=== PATIENT | female | born 1935 | race Caucasian/White ===

== ENCOUNTER 2016-12-23 17:50 | Inpatient (IN) | payer MEDICARE, OTHER ==
--- NOTE | ~2016-12-23 | CO ---
Unit #: [id number] #: [id number] Patient: FEDE MURGUIA [id number] [address] [place], [place] [address] [id number] I MR#: [id number] NAME: FEDE MURGUIA ROOM: 71187 Age: 81 Sex: F Admission Date: 12/23/2016 : 1935 Attending Physician: Dima August M.D. Primary Care Physician: No Primary Care Physician Consultation Date: 12/24/2016 CONSULTATION REPORT HISTORY OF PRESENT ILLNESS Ms. Murguia is an 81-year-old female who lives in an assisted living facility presents to the ER with a two to three day history of abdominal pain, associated nausea, vomiting and obstipation. In the ER, a CT was obtained. It was consistent with small bowel obstruction. On physical examination, she has an incarcerated right femoral hernia. She denied fever, chills, hematemesis, hematochezia, melena. PAST MEDICAL HISTORY Right total hip replacement, diabetes mellitus, hypercholesterolemia, cholecystectomy. SOCIAL HISTORY Assisted living facility. No family available at this time. The patient denies the use of tobacco or alcohol. FAMILY HISTORY She is unaware of any chronic or inheritable diseases. ALLERGIES No allergies to medication. MEDICATIONS 1. Lipitor. 2. Glucotrol. REVIEW OF SYSTEMS No hematemesis, hematochezia, melena, fever, chills, night sweats. PHYSICAL EXAMINATION GENERAL APPEARANCE: She is awake, alert and oriented. VITAL SIGNS: Temperature 98.3. Pulse 60. Respirations 14. Blood pressure 150/68. HEENT: Unremarkable. CARDIAC: Regular rhythm. LUNGS: Clear. ABDOMEN: Nondistended. There is no rebound tenderness or involuntary guarding. She does have an incarcerated right femoral hernia. EXTREMIIES: No clubbing, cyanosis or edema. NEUROLOGIC: Grossly intact. DIAGNOSTIC STUDIES LABORATORY: Hemoglobin 13.3, white count 12,400, platelets 511,000. Urinalysis shows 5 to 10 white cells. Chemistry is unremarkable except Unit #: [id number] #: [id number] Patient: FEDE MURGUIA for a potassium of 2.7. IMAGING: Chest x-ray: No acute disease. CT scan: Small bowel obstruction with transition point in the right lower quadrant and there is a right femoral hernia. There is an indeterminate left adrenal nodule, a 1.2 cm splenic artery aneurysm and bilateral sacral fractures and a nondisplaced fracture of the right L5 transverse process. ASSESSMENT AND PLAN 1. Small bowel obstruction secondary to incarcerated right femoral hernia. I discussed with the patient that she will need to be decompressed with an NG tube and then undergo urgent surgery to repair the hernia and evaluate her small bowel. She understands that if there is any injury to the small bowel, she may need to have an exploratory laparotomy and small bowel resection. 2. She does complain of back pain and has some changes of probably fractures from osteoporosis. 3. A 1.2 cm splenic artery aneurysm. 4. Indeterminate left adrenal nodule. Dictated by... Naomi Valdivia/silvia TD: 12/24/2016 06:37 JOB #: [id number] CONSULTATION REPORT Page 1 of 1 X Dima August MD X CONSULTATION REPORT
--- NOTE | ~2016-12-23 | CO ---
Unit #: [id number] #: [id number] Patient: FEDE ENGEL [id number] [address] [address] [id number] I MR#: [id number] NAME: FEDE ENGEL ROOM: 466 Age: 81 Sex: F Admission Date: 12/23/2016 : 1935 Attending Physician: Dima August M.D. Primary Care Physician: No Primary Care Physician Consultation Date: 12/30/2016 CONSULTATION REPORT Patient is admitted to Dr. Dima August. REASON FOR CONSULTATION Positive Clostridium difficile colitis. HISTORY OF PRESENT ILLNESS This is an 81-year-old female who lives in an assisted living facility who came to the emergency room with a few day history of abdominal pain, nausea, vomiting. Patient reports she did not have any fever when she came to the hospital and she does not recall any recent antibiotic use. Patient's CT scan was consistent with small bowel obstruction and hernia that was an incarcerated right femoral hernia. Patient was admitted to the hospital. She is status post surgery. She at some point also developed diarrhea and stool was tested and she was positive for C. diff colitis. The patient was started on Flagyl. Per this stay, surgery has also started a Prevpac for positive H. pylori. ID was asked to evaluate for further management with C. diff colitis. PAST MEDICAL HISTORY Includes total hip replacement, diabetes, hypercholesterolemia, and cholecystectomy. ALLERGIES No known allergies. MEDICATIONS Patient is currently on Flagyl and is to be initiated on a Prevpac. Further medications please refer to patient's MAR. SOCIAL HISTORY The patient denies any alcohol or tobacco abuse. REVIEW OF SYSTEMS Patient denies any fevers, chills, nausea, vomiting or diarrhea. She reports increasing appetite since being in the hospital. She reports no significant diarrhea at this time. Her abdominal pain has improved with pain pills. She denies any chest pain, shortness of breath, wheezes, UTI signs or symptoms or any nonhealing wounds. PHYSICAL EXAMINATION VITAL SIGNS: Temperature 98.3, pulse 72, blood pressure is 160/82, respiratory 18. GENERAL: This is a no apparent distress female who is sitting up in the bed, comfortably eating an omelet. Unit #: [id number] #: [id number] Patient: FEDE ENGEL: Her pupils are equal. Her neck is supple. CARDIOVASCULAR: S1 and S2 regular rate and rhythm. PULMONARY: Clear to auscultation bilaterally with no wheezes or rhonchi noted. ABDOMEN: Positive bowel sounds, soft, nontender. There is a right lower quadrant groin incision that is clean, dry, and intact with no Evidence of erythema, cellulitis or drainage. EXTREMITIES: No clubbing, cyanosis or edema. DIAGNOSTIC STUDIES LABS: BUN 8, creatinine 0.5, sodium 132, potassium 4.1, chloride 107, CO2 21, BUN 0.4, AST 52, ALT 34. WBC is 9.4, hemoglobin 12.2, hematocrit 38.0, platelets 424. H. Pylori is positive on 12/26/2016. Urinary analysis shows 25-50 WBCs, negative nitrates, stool study is positive for C. diff on 12/27/2016. 12/23/2016 urine culture shows 60,000 colonies of contamination. IMAGING STUDIES: Patient had a CT scan of the abdomen and pelvis - please see full report for complete details. Thus she had a small bowel obstruction right femoral hernia. IMPRESSION This is an 81-year-old female admitted to the hospital with nausea, vomiting, and diarrhea, not feeling well for several days and found to have an incarcerated right femoral hernia and small bowel obstruction. Patient is status post OR and has since developed episodes of diarrhea. Stool for C. diff toxin was positive and she has been initiated on Flagyl. Patient's H. Pylori was also positive and she has been started on a Prevpac. At this time, if the patient does not have any significant diarrhea or abdominal cramping, will recommend to treat as patient has first episode of C. diff. colitis with Flagyl. As patient is going to be on antibiotic therapy for 10-14 days, for her H. Pylori, will recommend that she continues Flagyl for the same duration. The patient does not have any fever or sighs or symptoms of other infection at this time. She is eating and appears nontoxic. Thank you for allowing us to participate in the care of this patient. Further recommendations will be followed pending patient's clinical course. Dictated by... Tobin Rios.PAmiraRAmiraN. for Naomi Nieves/kyrie TD: 12/30/2016 09:59 JOB #: [id number] Unit #: [id number] #: [id number] Patient: FEDE ENGEL CONSULTATION REPORT Page 1 of 1 X X CONSULTATION REPORT
--- NOTE | ~2016-12-23 | EKG ---
PATIENT: FEDE ENGEL UNIT #: [id number] Ventricular Rate: 62 BPM Atrial Rate: 62 BPM P-R Interval: 176 ms QRS Duration: 78 ms Q-T Interval: 412 ms QTC Calculation(Bezet): 418 ms P [place]: 46 degrees Calculated R [place]: 14 degrees Calculated T [place]: 37 degrees Diagnosis Line: Normal sinus rhythm Diagnosis Line: Low voltage QRS Diagnosis Line: Borderline ECG Diagnosis Line: No previous ECGs available Diagnosis Line: Confirmed by ALBERT WINTERS MD ([id number]) on 12/24/2016 Diagnosis Line: 11:31:46 PM INTERPRETING MD: SINGH HERZOG
--- NOTE | ~2016-12-23 | CR63 ---
[facility] A Service of [facility] & [facility] RADIOLOGY TEXT RESULTS PATIENT: FEDE ENGEL LOCATION: [facility] [address]326-22 : [birth year] UNIT #: [id number] AGE: [address]: Dima August MD SEX: F ORDER DR: [id number] [facility] [address] [place], [place] [address] [id number] MR#: [id number] Acc #: [id number] NAME: FEDE ENGEL : 1935 SEX: F STUDY DATE/TIME: 12/23/2016 16:56 UNIT: [facility] ROOM: STUDY DESCRIPTION: CR Chest 2 View Attending Physician: Moi Jeffrey Aprn Ordering Physician: Ed Doctor [id number] [facility] Primary Care Physician: Primary Care Physician No MEDICAL IMAGING REPORT This report is preliminary unless electronic signature is present EXAM Two-view chest INDICATIONS Chest pain, cough and abdominal pain. Weakness. FINDINGS PA and lateral views of the chest without comparison. Heart and mediastinal contours normal. Lungs are clear. No pleural effusion. Lungs are hyperinflated suggesting a component of obstructive lung disease. IMPRESSION No acute cardiopulmonary findings. Dictated by... Jeff Whitley M.D. THIS IS AN ELECTRONICALLY VERIFIED REPORT Jeff Whitley M.D. at 12/23/2016 10:06 PM ERIS/doreen TD: 12/23/2016 21:02 JOB #: [id number] MEDICAL IMAGING REPORT Page 1 of 1 COPY
--- NOTE | ~2016-12-23 | OR ---
Unit #: [id number] #: [id number] Patient: FEDE ENGEL [id number] [address] [place], [place] [address] [id number] I MR#: [id number] NAME: FEDE ENGEL ROOM: [facility] Date of Procedure: 12/24/2016 Admission Date: 12/23/2016 Surgeon: Dima August M.D. : 1935 Attending Physician: Dima August M.D. OPERATIVE REPORT PREOPERATIVE DIAGNOSES Incarcerated right femoral hernia with small bowel obstruction. POSTOPERATIVE DIAGNOSES Incarcerated right femoral hernia with small bowel obstruction. PROCEDURE PERFORMED Right inguinal exploration with reduction of right femoral hernia and Ceasar ligament hernia repair with mesh reinforcement. [employer] [place]. ANESTHESIA General endotracheal anesthesia. ESTIMATED BLOOD LOSS Less than 20 mL. INDICATIONS FOR PROCEDURE Ms. Meeks is an 81-year-old female, who lives in assisted living facility. She was sent to the ER because of nausea, vomiting, and abdominal pain and she stated that she has been obstipated for [address] scan in the emergency room showed a small bowel obstruction with a loop of small bowel incarcerated in a right femoral hernia. The patient was seen in the ER and taken urgently to the operating room. DESCRIPTION OF PROCEDURE The patient was transported from the emergency room to the operating room, and after induction of general endotracheal anesthesia, Peralta catheter was placed and she received IV antibiotics per SCIP protocol. Her abdominal wall hair was clipped, and she was prepped and draped in usual sterile fashion. In the skin line, a transverse incision made over the right inguinal canal. I dissected down through the soft tissue and exposed the external oblique aponeurosis. The aponeurosis was opened in the direction of its fibers to include the external ring. The right femoral hernia sac was identified and mobilized from the cord structures, the inguinal ligament, and the floor of the inguinal canal were opened to allow mobilization of the hernia sac and with mobilization of the small bowel reduced back into the peritoneal cavity. I opened the hernia sac and palpated and there was no residual incarcerated components and an Allis clamp was used to grasp the bowel in the area, which was evaluated and run Unit #: [id number] #: [id number] Patient: FEDE ENGEL for short distance and it was all viable with no evidence of injury. The hernia sac was then closed with a 2-0 silk pursestring suture and excess hernia sac excised and the stump of the hernia sac was reduced back in the peritoneal cavity. I further dissected out and mobilized Ceasar ligament, identify the iliohypogastric nerve and then did a Ceasar ligament repair using 0 Ethibond interrupted sutures between the Ceasar ligament and the conjoined tendon. The transition stitch we were cautious not to compromise the femoral vein. The round ligament had been mobilized. It was clamped, divided, and ligated and the internal ring was obliterated by suture ligation. 1 x 4 cm polypropylene mesh was then secured to the pubic tubercle, stretched across the inguinal canal and secured to the inguinal ligament laterally. A relaxing incision was made at the edge of the rectus sheath and the medial edge of the mesh was secured to the rectus sheath. After the mesh was adequately positioned, the external oblique was reapproximated. 30 mL of 0.5% Marcaine with epinephrine was infiltrated in the fascia and soft tissue. The soft tissue was closed with Vicryl interrupted suture and the skin was reapproximated with 4-0 Monocryl running subcuticular closure and Dermabond skin adhesive. Sponges and needle counts were correct x3. The patient tolerated the procedure well and transported to recovery in stable condition. There was no family available to discuss the findings with. She will be admitted to the hospital postoperatively. Dictated by... Naomi Valdivia/deonte TD: 12/24/2016 22:53 JOB #: [id number] OPERATIVE REPORT Page 1 of 1 X Dima August MD X PROCEDURE OPERATIVE NOTE
--- NOTE | ~2016-12-23 | DS ---
Unit #: [id number] #: [id number] Patient: FEDE MURGUIA [id number] [address] [place], [place] [address] [id number] I MR#: [id number] NAME: FEDE MURGUIA ROOM: 466 Age: 81 Sex: F Admission Date: 12/23/2016 : 1935 Discharge Date: Attending Physician: Dima August M.D. DISCHARGE SUMMARY HISTORY AND HOSPITAL COURSE Miss Murguia is an 81-year-old female who lives in a high-rise assisted living facility. She was brought to the hospital because of several days of nausea, vomiting, and abdominal pain. In the emergency room, on evaluation she was found to have an incarcerated femoral hernia with an associated small bowel obstruction from the incarcerated small bowel. She was taken urgently after resuscitation to the operating room where she underwent reduction of her hernia and femoral hernia repair. She was admitted to the hospital postoperatively and hemodynamically did well but continued to have diarrhea and nausea. After evaluation, she was found to be both H. pylori positive and C. difficile positive. She was started on appropriate medication, and with appropriate treatment, her diarrhea resolved, and she is now having controlled formed stools. She also is pretty frail and weak, so we asked Physical Therapy and Occupational Therapy to assess the patient, and now that she is stable from her surgery and her diarrhea is resolved, it is felt that the patient would benefit from some ongoing rehab and residential. A consult was obtained, and she has been accepted to a facility. She is afebrile. She is tolerating a regular diet. Her stools are formed, but she does have approximately 10 days of treatment for her C. difficile and H. pylori pending. Her wound is healing without complication. She will be discharged to the facility today in stable condition. DISCHARGE INSTRUCTIONS 1. She is to continue physical and occupational therapy. 2. She may shower. 3. Prescriptions were written, and her medication reconciliation sheet was completed so that she can complete her treatment. 4. I will see her back in the office to reevaluate her hernia in two weeks. 1. Dictated by... Dima August M.D. Albin TD: 12/31/2016 14:45 JOB #: [id number] Unit #: [id number] #: [id number] Patient: FEDE MURGUIA DISCHARGE SUMMARY Page 1 of 1 X Dima August MD X DISCHARGE SUMMARY
--- NOTE | ~2016-12-23 | CR6 ---
[facility] A Service of [facility] & [facility] RADIOLOGY TEXT RESULTS PATIENT: FEDE ENGEL LOCATION: [facility] 466-01 : [birth year] UNIT #: [id number] AGE: [address]: Dima August MD SEX: F ORDER DR: [id number] [facility] [address] [place], [place] [address] [id number] I MR#: [id number] Acc #: [id number] NAME: FEDE ENGEL : 1935 SEX: F STUDY DATE/TIME: 12/24/2016 7:10 UNIT: [facility] ROOM: 03046 STUDY DESCRIPTION: CR Abdomen Portable Sng View Attending Physician: Dima August M.D. Ordering Physician: Dima August M.D. Primary Care Physician: Primary Care Physician No MEDICAL IMAGING REPORT This report is preliminary unless electronic signature is present EXAM Supine radiograph of the abdomen. The date is 12/24/2016. HISTORY Nasogastric tube placement. FINDINGS Supine radiograph of the lower chest upper abdomen presented. Comparison to chest radiograph 12/23/2016. There is an enteric tube in place. The tip of which terminates just below the level of the diaphragm. For placement in [id number]-[id number] stomach it could be advanced approximately 10 cm and reassessed radiographically. The bowel gas pattern shows no small bowel or colonic dilatation. Moderate stool burden in visualized colon. No free air. Heart upper limits of normal in size. Probable linear atelectasis left lung base. Slight blunting left lateral costophrenic sulcus may reflect trace pleural effusion. Dictated by... Sylvester Melendez M.D. THIS IS AN ELECTRONICALLY VERIFIED REPORT Sylvester Melendez M.D. at 12/25/2016 6:36 PM Dylon TD: 12/24/2016 08:41 JOB #: [id number] MEDICAL IMAGING REPORT Page 1 of 1 COPY
--- NOTE | ~2016-12-23 | CT2 ---
[facility] A Service of [facility] RADIOLOGY TEXT RESULTS PATIENT: FEDE ENGEL LOCATION: [facility] [address]87-43 : [birth year] UNIT #: [id number] AGE: [address]: Dima August MD SEX: F ORDER DR: [id number] [facility] [address] [place], [place] [address] [id number] I MR#: [id number] Acc #: [id number] NAME: FEDE ENGEL : 1935 SEX: F STUDY DATE/TIME: 12/23/2016 18:16 UNIT: [facility] ROOM: 66331 STUDY DESCRIPTION: CT Abd and Pelv W Cont Attending Physician: Dima August M.D. Ordering Physician: Ed Emigdio Deleon M.D. Primary Care Physician: Primary Care Physician No MEDICAL IMAGING REPORT This report is preliminary unless electronic signature is present EXAM CT abdomen and pelvis, 12/23/2016 INDICATION Abdominal pain, nausea and vomiting for 2 days. Pelvic pain. TECHNIQUE CT abdomen and pelvis with p.o. and IV contrast (100 mL Isovue-370 IV contrast). Coronal and sagittal reconstructions were obtained. This CT exam was performed with one or more of the following radiation dose reduction techniques: automatic exposure control, adjustment of mA and/or kV according to patient size, and iterative reconstruction. COMPARISON None available. FINDINGS There are innumerable tiny tree-in-bud pulmonary nodules in both lung bases. This is most commonly associated with an acute inflammatory or infectious process. Images of the upper abdomen are degraded by some motion. The liver enhances normally. Gallbladder is presumed surgically absent. The pancreas and spleen are within normal limits. There is a left adrenal nodule measuring 1.7 cm. There is a small hiatal hernia. The proximal small bowel is dilated. This measures up to 3.4 cm. There is a focal transition point in the right lower pelvis. The patient has a right femoral hernia containing a small amount of small bowel. The distal small bowel is decompressed. There is a small amount of fluid within the femoral hernia. This area is [facility] A Service of [facility] RADIOLOGY TEXT RESULTS PATIENT: FEDE ENGEL LOCATION: [facility] [address]-90 : 33 UNIT #: [id number] AGE: [address]: Dima August MD SEX: F ORDER DR: partially obscured due to the patient's right total hip arthroplasty. The distal small bowel is decompressed. There is a large volume of stool throughout the colon. No evidence of abscess or perforation. PELVIS: The bladder is obscured. No enlarged pelvic or inguinal lymph nodes. There are sacral insufficiency fractures. There is a nondisplaced fracture of the right L5 transverse process. IMPRESSION 1. Small bowel obstruction. The small bowel is dilated into the right lower quadrant where there is a right femoral hernia resulting in the small bowel obstruction. The distal small bowel is decompressed. 2. Large volume stool throughout the colon. 3. Indeterminate left adrenal nodule. This is likely a benign adenoma based on statistics, however, this could be further interrogated with an adrenal protocol CT or MRI. If definitive characterization is deferred then a followup study in 6 months could be obtained. 4. Bilateral sacral insufficiency fractures. There is a nondisplaced fracture of the right L5 transverse process. 5. Not mentioned above, there is a small 1.2 cm splenic artery aneurysm in the peripheral splenic artery. Dictated by... Jeff Whitley M.D. THIS IS AN ELECTRONICALLY VERIFIED REPORT Jeff Whitley M.D. at 12/24/2016 2:31 PM ERIS/john TD: 12/23/2016 23:12 JOB #: [id number] MEDICAL IMAGING REPORT Page 1 of 1 COPY
[2016-12-23 16:52] LABS: BASOPHIL% 0.2 % (0-2.5); EOSINOPHIL% 0.1 % (0.0-7.0); HEMATOCRIT 40.9 % (35.0-45.0); HEMOGLOBIN 13.3 gm/dL (12.0-16.0); LYMPHOCYTE# 0.7 X10e3 (1.0-3.5); MEAN CORPUSCULAR HEMOGLOBIN 28.3 PG (28-34); MEAN CORPUSCULAR HGB CONC 32.5 g/dL (30-36); MEAN PLATELET VOLUME 7.7 FL (6.5-11.5); MONOCYTE# 0.8 X10e3 (0-1.0); MONOCYTE% 6.7 % (3.0-12.0); NEUTROPHIL# 10.8 X10e3 (1.5-7.1); PLATELET COUNT 511 X10e3 (140-420); RED CELL DISTRIBUTION WIDTH 13.9 % (11.0-15.5); WHITE BLOOD COUNT 12.4 X10e3 (4.0-10.5)
[2016-12-23 16:58] LABS: DIFF IND NO
[2016-12-23 17:36] LABS: BILIRUBIN, DIRECT 0.1 mg/dL (0.0-0.2); BILIRUBIN,INDIRECT 0.6 mg/dL (0.0-0.9); BILIRUBIN,TOTAL 0.7 mg/dL (0.2-2.0); BUN/CREATININE RATIO 35.71; CALCIUM SERUM 9.5 mg/dL (8.4-10.2); CREATININE SERUM 0.7 mg/dL (0.6-1.4); GLOM FILT RATE Estimated 80.1 mL/min (>60); PROTEIN TOTAL SERUM 7.6 g/dL (6.0-8.3)
[2016-12-23 17:38] LABS: POTASSIUM 2.7 mmol/L (3.5-5.1)
[2016-12-23 18:08] LABS: URINE SOURCE CLEAN CATCH
[2016-12-23 18:15] LABS: URINE APPEARANCE TURBID; URINE BILIRUBIN NEG (NEG); URINE BLOOD NEG (NEG); URINE COLOR YELLOW; URINE GLUCOSE NEG (NEG); URINE KETONE TRACE (NEG); URINE LEUKOCYTE ESTERASE 1+ (NEG); URINE NITRATE NEG (NEG); URINE PROTEIN NEG (NEG); URINE SPECIFIC GRAVITY 1.019 (1.003-1.035)
[2016-12-23 18:17] LABS: CULTURE INDICATED? YES; URINE BACTERIA AUWI 1+ (NEGATIVE); URINE SQUAMOUS EPITHELIAL CELL MOD /[HPF]
[2016-12-23] MEDS ORDERED: LIPITOR20 MG PO (19:36)
[2016-12-23] MEDS ORDERED: GLUCOTROL PO (19:36)
[2016-12-24 07:37] LABS: BASOPHIL% 0.2 % (0-2.5); EOSINOPHIL% 0.1 % (0.0-7.0); HEMATOCRIT 38.5 % (35.0-45.0); HEMOGLOBIN 12.5 gm/dL (12.0-16.0); LYMPHOCYTE# 1.1 X10e3 (1.0-3.5); MEAN CELL VOLUME 88.5 FL (83-96); MEAN CORPUSCULAR HEMOGLOBIN 28.8 PG (28-34); MEAN CORPUSCULAR HGB CONC 32.5 g/dL (30-36); MEAN PLATELET VOLUME 7.8 FL (6.5-11.5); MONOCYTE# 1.1 X10e3 (0-1.0); MONOCYTE% 7.9 % (3.0-12.0); NEUTROPHIL# 11.6 X10e3 (1.5-7.1); NEUTROPHIL% 83.8 % (40-75); PLATELET COUNT 431 X10e3 (140-420); RED BLOOD COUNT 4.35 X10e (3.90-5.30); RED CELL DISTRIBUTION WIDTH 13.9 % (11.0-15.5); WHITE BLOOD COUNT 13.8 X10e3 (4.0-10.5)
[2016-12-24 07:39] LABS: DIFF IND NO
[2016-12-24 08:04] LABS: CALCIUM SERUM 9.2 mg/dL (8.4-10.2); CREATININE SERUM 0.8 mg/dL (0.6-1.4); GLOM FILT RATE Estimated 68.2 mL/min (>60); MAGNESIUM 2.6 mg/dL (1.6-3.0); PHOSPHOROUS 3.9 mg/dL (2.5-4.6); POTASSIUM 3.6 mmol/L (3.5-5.1)
[2016-12-25 10:17] LABS: BASOPHIL% 0.1 % (0-2.5); DIFF IND YES; HEMATOCRIT 38.4 % (35.0-45.0); HEMOGLOBIN 12.1 gm/dL (12.0-16.0); LYMPHOCYTE# 0.8 X10e3 (1.0-3.5); LYMPHOCYTE% 5.1 % (17.0-45.0); MEAN CORPUSCULAR HGB CONC 31.4 g/dL (30-36); MEAN PLATELET VOLUME 8.2 FL (6.5-11.5); MONOCYTE# 1.7 X10e3 (0-1.0); MONOCYTE% 11.2 % (3.0-12.0); NEUTROPHIL# 12.7 X10e3 (1.5-7.1); NEUTROPHIL% 83.6 % (40-75); PLATELET COUNT 457 X10e3 (140-420); RED BLOOD COUNT 4.31 X10e (3.90-5.30); RED CELL DISTRIBUTION WIDTH 14.2 % (11.0-15.5); WHITE BLOOD COUNT 15.2 X10e3 (4.0-10.5)
[2016-12-25 11:37] LABS: ANISOCYTOSIS SL; PLATELET ESTIMATE INCREASED (NORMAL); RBC NORMAL YES
[2016-12-25 12:00] LABS: CALCIUM SERUM 8.2 mg/dL (8.4-10.2); GLOM FILT RATE Estimated 52.1 mL/min (>60); MAGNESIUM 2.3 mg/dL (1.6-3.0)
[2016-12-26 09:38] LABS: ALBUMIN SERUM 2.6 g/dL (3.5-5.0); BILIRUBIN,TOTAL 0.5 mg/dL (0.2-2.0); BUN/CREATININE RATIO 41.42; CALCIUM SERUM 8.5 mg/dL (8.4-10.2); CREATININE SERUM 0.7 mg/dL (0.6-1.4); GLOM FILT RATE Estimated 80.1 mL/min (>60); MAGNESIUM 2.3 mg/dL (1.6-3.0); POTASSIUM 4.3 mmol/L (3.5-5.1); PROTEIN TOTAL SERUM 5.2 g/dL (6.0-8.3)
[2016-12-26 10:19] LABS: BASOPHIL% 0.1 % (0-2.5); EOSINOPHIL% 0.1 % (0.0-7.0); HEMOGLOBIN 11.8 gm/dL (12.0-16.0); LYMPHOCYTE# 0.8 X10e3 (1.0-3.5); LYMPHOCYTE% 5.3 % (17.0-45.0); MEAN CELL VOLUME 88.6 FL (83-96); MEAN CORPUSCULAR HEMOGLOBIN 28.3 PG (28-34); MEAN CORPUSCULAR HGB CONC 31.9 g/dL (30-36); MEAN PLATELET VOLUME 7.5 FL (6.5-11.5); MONOCYTE% 6.7 % (3.0-12.0); NEUTROPHIL# 13.5 X10e3 (1.5-7.1); NEUTROPHIL% 87.8 % (40-75); PLATELET COUNT 405 X10e3 (140-420); RED BLOOD COUNT 4.17 X10e (3.90-5.30); RED CELL DISTRIBUTION WIDTH 14.2 % (11.0-15.5); WHITE BLOOD COUNT 15.3 X10e3 (4.0-10.5)
[2016-12-26 10:21] LABS: DIFF IND NO
[2016-12-27 12:30] LABS: URINE SOURCE CATH
[2016-12-27 12:48] LABS: URINE APPEARANCE CLEAR; URINE BILIRUBIN NEG (NEG); URINE BLOOD TRACE (NEG); URINE COLOR YELLOW; URINE GLUCOSE NEG (NEG); URINE KETONE NEG (NEG); URINE LEUKOCYTE ESTERASE 2+ (NEG); URINE NITRATE NEG (NEG); URINE PROTEIN NEG (NEG); URINE UROBILINOGEN 0.2 MG/DL (NEG)
[2016-12-27 12:52] LABS: URINE BACTERIA AUWI 2+ (NEGATIVE); URINE SQUAMOUS EPITHELIAL CELL OCC /[HPF]; UWBCS1 AUWI 25-50 (0-5)
[2016-12-28 11:33] LABS: THYROID STIMULATING HORMONE 3.45 uIU/ml (0.34-5.60)
[2016-12-28 11:37] LABS: FREE T3 2.1 pg/mL (2.5-3.9)
[2016-12-28 11:39] LABS: FREE THYROXIN (T4) 1.09 ng/dL (0.58-1.64)
[2016-12-29 08:04] LABS: BASOPHIL% 0.4 % (0-2.5); EOSINOPHIL# 0.2 X10e3 (0-0.7); EOSINOPHIL% 2.2 % (0.0-7.0); HEMOGLOBIN 12.2 gm/dL (12.0-16.0); LYMPHOCYTE# 1.7 X10e3 (1.0-3.5); LYMPHOCYTE% 18.2 % (17.0-45.0); MEAN CELL VOLUME 87.9 FL (83-96); MEAN CORPUSCULAR HEMOGLOBIN 28.1 PG (28-34); MEAN PLATELET VOLUME 7.9 FL (6.5-11.5); MONOCYTE# 0.9 X10e3 (0-1.0); NEUTROPHIL# 6.5 X10e3 (1.5-7.1); NEUTROPHIL% 69.2 % (40-75); PLATELET COUNT 424 X10e3 (140-420); RED BLOOD COUNT 4.33 X10e (3.90-5.30); RED CELL DISTRIBUTION WIDTH 14.3 % (11.0-15.5); WHITE BLOOD COUNT 9.4 X10e3 (4.0-10.5)
[2016-12-29 08:05] LABS: DIFF IND YES
[2016-12-29 08:24] LABS: ANISOCYTOSIS SL; PLATELET ESTIMATE NORMAL (NORMAL)
[2016-12-29 08:28] LABS: ALBUMIN SERUM 2.6 g/dL (3.5-5.0); BILIRUBIN,TOTAL 0.4 mg/dL (0.2-2.0); CALCIUM SERUM 7.7 mg/dL (8.4-10.2); CREATININE SERUM 0.5 mg/dL (0.6-1.4); GLOM FILT RATE Estimated 89.5 mL/min (>60); POTASSIUM 4.1 mmol/L (3.5-5.1)
== END 2016-12-31 16:37 | DRG 351 ==
LOC: CED 17:50 → CEDOF 19:55 → C4C 12-24 18:15
PROVIDERS: Emergency Medicine; Specialist; Surgery
PROC: 0DH67UZ Insertion of Feeding Device into Stomach, Via Natural or Artificial Opening (ICD-10-PCS; 2016-12-24)
PROC: 0YQ70ZZ Repair Right Femoral Region, Open Approach (ICD-10-PCS; 2016-12-24)
PROC: 0YU50JZ Supplement Right Inguinal Region with Synthetic Substitute, Open Approach (ICD-10-PCS; principal; 2016-12-24 07:30)
DX: K41.30 Unilateral femoral hernia, with obstruction, without gangrene, not specified as recurrent (principal); A04.7 Enterocolitis due to Clostridium difficile; I72.8 Aneurysm of other specified arteries; E11.9 Type 2 diabetes mellitus without complications; B96.81 Helicobacter pylori [H. pylori] as the cause of diseases classified elsewhere; K40.90 Unilateral inguinal hernia, without obstruction or gangrene, not specified as recurrent; M81.0 Age-related osteoporosis without current pathological fracture; Z79.84 Long term (current) use of oral hypoglycemic drugs; E78.00 Pure hypercholesterolemia, unspecified; Z90.49 Acquired absence of other specified parts of digestive tract
CPT/HCPCS: 36415; 71020; 74000; 74177; 80048; 80053; 80076; 81003; 82150; 82947; 83690; 83735; 84100; 84439; 84443; 84481; 85025; 86677; 87086; 87493; 88302; 93005; 97110; 97116; 97162; 97166; 97530; 97535; 99285; C1781; C9113; G8978-GP; G8979-GP; G8987-GO; G8988-GO; J0330; J0690; J1650; J2250; J2270; J2405; J2710; J2765; J3010; Q9967